=== PATIENT | female | born 1965 | race African-American/Black ===

== ENCOUNTER 2020-01-09 | Emergency (ER) | payer MEDICARE ==
[~2020-01-09] MED LIST: AMMONIUM LACTATE121 EX; ASPIRIN EC81 MG PO; ASPIRIN325 M1 OR; ATENOLOL50 MG OR; BACLOFEN20 MG PO; DYAZIDE1 CAP PO; FIORICET PO; GLIPIZIDE ER5 MG PO; GLUCOTROL10 MG OR; GLYBURIDE5 MG PO; LACTULOSE PO; LASIX 80 MG TAB80 M1 PO; LEVOTHYROXIN50 MC1 PO; LISINOPRIL20 MG PO; LISINOPRIL40 MG PO; LORTAB 5/3255 MG PO; MAXIDE OR; MEGESTROL AC20 MG PO; METFORMIN1000 MG PO; METOCLOPRAM10 MG PO; MULTI VIT PO; NASONEX50 MCG/AC NAB; NEURONTIN600 MG PO; NEXIUM40 M1 PO; NORVASC10 M1 PO; NORVASC10 MG OR; PLAVIX75 MG PO; POT CL MICRO10 MEQ PO; POTASSIUM CIT PO; PRAVACHOL20 MG PO; PREMARIN0.3 MG; PROAIR HFA IN; ULTRAM50 M1 PO; ULTRAM50 MG OR; ZESTRIL10 M1 PO; [UNRECOGNIZED DRUG - OTHER]; [UNRECOGNIZED DRUG - REMARK]
[2020-01-09 21:46] LABS: URINE BILIRUBIN - DIPSTICK NEGATIVE (NEGATIVE); URINE BLOOD DIPSTICK TRACE-INTACT (NEGATIVE); URINE COLOR YELLOW; URINE GLUCOSE - DIPSTICK NEGATIVE (NEGATIVE); URINE KETONE NEGATIVE (NEGATIVE); URINE LEUK ESTERASE NEGATIVE (NEGATIVE); URINE NITRITE - DIPSTICK NEGATIVE (Negative); URINE PROTEIN - DIPSTICK NEGATIVE (NEG-TRACE); URINE SPECIFIC GRAVITY 1.025; URINE UROBILINOGEN - DIPSTICK 0.2 E.U./dL (0.2)
[2020-01-09 21:49] LABS: HEMATOCRIT 34.6 % (37.0-47.0); IMMATURE GRANULOCYTES 0.3 % (0.0-5.0); MEAN CELL VOLUME 77.8 fL CALC (80.0-100.0); MEAN CORPUSCULAR HGB CONC 34.7 g/L CALC (32.0-36.0); NEUT# 5.05 thou/uL (2.00-7.15); RED BLOOD COUNT 4.45 mill/uL (4.20-5.60); RED CELL DISTRI WIDTH 13.9 % (11.5-15.5)
[2020-01-09 22:23] LABS: ALKALINE PHOSPHATASE 87 u/l (38-126); ANION GAP 13 (6-22 (CALC)); BILIRUBIN, TOTAL 0.3 mg/dL (0.0-1.4); BUN 19 mg/dL (7-17); BUN/CREATININE RATIO 29 (12-20 (CALC)); CARBON DIOXIDE 26 mmol/l (22-30); CHLORIDE 104 mmol/l (95-108); CREATININE 0.7 mg/dL (0.5-1.0); GFR > 60 ML/MIN (>=60 (CALC)); GFR FOR AFR.AMER. > 60 ML/MIN (>=60 (CALC)); POTASSIUM 4.2 mmol/l (3.5-5.1); SGOT/AST 23 u/l (14-36); SODIUM 138 mmol/l (137-146); TOTAL PROTEIN 7.6 g/dL (6.3-8.2)
[2020-01-09 22:35] LABS: MYOGLOBIN 37 ng/mL (0 - 62)
[2020-01-10] MEDS ORDERED: NAPROXEN500 MG PO (02:12)
== END 2020-01-10 02:30 | disposition home or self-care (01) ==
PROVIDERS: Emergency Medicine
DX: R07.89 Other chest pain (principal); M79.602 Pain in left arm; I25.10 Atherosclerotic heart disease of native coronary artery without angina pectoris; I10 Essential (primary) hypertension; E11.9 Type 2 diabetes mellitus without complications; I25.2 Old myocardial infarction; Z86.73 Personal history of transient ischemic attack (TIA), and cerebral infarction without residual deficits; Z79.84 Long term (current) use of oral hypoglycemic drugs

== ENCOUNTER 2022-04-01 12:26 | Emergency (ER) | payer MEDICARE ==
[~2022-04-01] VITALS: Ht 157.5 cm; Wt 73.0 kg
[~2022-04-01 12:26] MED LIST changes: +NAPROXEN500 MG PO
[2022-04-01 13:02] VITALS: BP 179/97
[2022-04-01 14:14] VITALS: BP 145/66
[2022-04-01 14:18] LABS: HEMOGLOBIN 12.7 g/dl (12.0-16.0); IMMATURE GRANULOCYTES 0.2 % (0.0-5.0); MEAN CELL VOLUME 78.6 fL CALC (80.0-100.0); MEAN CORPUSCULAR HGB 27.7 pG CALC (26.0-32.0); MEAN CORPUSCULAR HGB CONC 35.3 g/dL CAL (32.0-36.0); NEUT# 2.76 thou/uL (2.00-7.15); RED BLOOD COUNT 4.58 mill/uL (4.20-5.60); RED CELL DISTRI WIDTH 12.8 % (11.5-15.5)
[2022-04-01 14:24] LABS: PROTHROMBIN TIME 10.1 SECONDS (9.0-12.5)
[2022-04-01 14:56] LABS: ANION GAP 10 (6-22 (CALC)); BUN 14 mg/dL (7-17); BUN/CREATININE RATIO 18 (12-20 (CALC)); CARBON DIOXIDE 28 mmol/l (22-30); CHLORIDE 104 mmol/l (95-108); CREATININE 0.8 mg/dL (0.5-1.0); GFR > 60 ML/MIN (>=60 (CALC)); GFR FOR AFR.AMER. > 60 ML/MIN (>=60 (CALC)); POTASSIUM 4.1 mmol/l (3.5-5.1); SODIUM 138 mmol/l (137-146)
[2022-04-01 15:00] VITALS: BP 163/88
[2022-04-01] MEDS ORDERED: NAPROXEN500 MG PO (15:14)
== END 2022-04-01 15:36 | disposition home or self-care (01) ==
LOC: ED 12:26
PROVIDERS: Nurse Practitioner
DX: S50.12XA Contusion of left forearm, initial encounter (principal); I10 Essential (primary) hypertension; E11.9 Type 2 diabetes mellitus without complications; I25.10 Atherosclerotic heart disease of native coronary artery without angina pectoris; I25.2 Old myocardial infarction; X58.XXXA Exposure to other specified factors, initial encounter; Z86.73 Personal history of transient ischemic attack (TIA), and cerebral infarction without residual deficits; Z79.84 Long term (current) use of oral hypoglycemic drugs; Z79.02 Long term (current) use of antithrombotics/antiplatelets; M79.89 Other specified soft tissue disorders

== ENCOUNTER 2025-01-28 20:12 | Emergency (ER) | payer MEDICARE ==
[~2025-01-28] VITALS: Ht 157.5 cm; Wt 53.6 kg
[2025-01-28 20:17] VITALS: BP 143/79
[2025-01-28 20:34] VITALS: BP 148/76
[2025-01-28 20:37] LABS: BASO% 0.2 % (0-3); EOS% 0.4 % (0-8); HEMATOCRIT 35.7 % (37.0-47.0); HEMOGLOBIN 12.5 g/dl (12.0-16.0); LYMPH% 37.6 % (15-41); MEAN CELL VOLUME 80.6 fL CALC (80.0-100.0); MEAN CORPUSCULAR HGB 28.2 pG CALC (26.0-32.0); MONO% 8.5 % (2-13); NEUT# 2.44 thou/uL (2.00-7.15); NEUT% 53.3 % (42-76); RED BLOOD COUNT 4.43 mill/uL (4.20-5.60); RED CELL DISTRI WIDTH 13.1 % (11.5-15.5)
[2025-01-28 20:54] LABS: PROTHROMBIN TIME 11.2 SECONDS (9.0-12.5)
[2025-01-28 20:55] LABS: ALKALINE PHOSPHATASE 68 u/l (38-126); ANION GAP 10 (6-22 (CALC)); BUN 12 mg/dL (8-23); BUN/CREATININE RATIO 16 (12-20 (CALC)); CARBON DIOXIDE 31 mmol/l (22-30); CHLORIDE 106 mmol/l (95-108); CREATININE 0.7 mg/dL (0.5-1.0); ESTIMATED GFR 98 ML/MIN (>=90 (CALC)); ETHYL ALCOHOL 0 mg/dl (0-30); POTASSIUM 3.8 mmol/l (3.5-5.1); SGOT/AST 49 u/l (9-36); SODIUM 142 mmol/l (137-146); TOTAL PROTEIN 6.9 g/dL (6.3-8.2)
[2025-01-28 20:58] LABS: BILIRUBIN, TOTAL 0.6 mg/dL (0.02-1.3)
[2025-01-28 21:29] VITALS: BP 173/77
[2025-01-28 21:30] VITALS: BP 164/86
[2025-01-28 21:40] LABS: URINE BILIRUBIN - DIPSTICK Negative (NEGATIVE); URINE BLOOD DIPSTICK Negative (NEGATIVE); URINE GLUCOSE - DIPSTICK Negative (NEGATIVE); URINE KETONE 40 mg/dL (NEGATIVE); URINE NITRITE - DIPSTICK Negative (Negative); URINE PROTEIN - DIPSTICK Negative (NEG-TRACE)
[2025-01-28 21:42] LABS: URINE COLOR Yellow; URINE LEUK ESTERASE Small (NEGATIVE)
[2025-01-28 21:45] VITALS: BP 169/90
[2025-01-28 21:48] LABS: URINE RBC 0-2 RBC/hpf (0-5); URINE SQUAMOUS EPITHELIAL CELL FEW EPI/hpf (0-FEW)
[2025-01-28 21:49] LABS: URINE BACTERIA RARE hpf
[2025-01-28 21:50] LABS: URINE MUCUS FEW hpf (NONE-FEW)
[2025-01-29 02:00] VITALS: BP 177/88
== END 2025-01-29 02:30 | disposition designated cancer center or children's hospital (05) ==
LOC: ED 20:12
PROVIDERS: Family Medicine
DX: F22 Delusional disorders (principal); I10 Essential (primary) hypertension; E11.9 Type 2 diabetes mellitus without complications; I25.2 Old myocardial infarction; Z79.84 Long term (current) use of oral hypoglycemic drugs; Z86.73 Personal history of transient ischemic attack (TIA), and cerebral infarction without residual deficits; Z20.822 Contact with and (suspected) exposure to COVID-19